=== PATIENT | male | born 2000 | race Asian ===

== ENCOUNTER 2025-02-28 10:32 | Inpatient (IN) | payer OTHER ==
[~2025-02-28] VITALS: Ht 167.6 cm; Wt 69.2 kg
[2025-02-28 11:34] LABS: PLATELET COUNT, AUTOMATED 300 10^3/uL (150-450)
[2025-02-28 12:07] LABS: ETHYL ALCOHOL (ETHANOL) < 0.003 % (0.000-0.010)
[2025-02-28 12:09] LABS: ALT/SGPT 21 U/L (7.0-40); AST/SGOT 21 U/L (<34); CALCIUM LEVEL 9.9 MG/DL (8.5-10.1); CARBON DIOXIDE LEVEL 26 MMOL/L (20-31); CHLORIDE LEVEL 104 MMOL/L (98-107); CREATININE FOR GFR 1.01 MG/DL (0.70-1.30); GLOMERULAR FILTRATION RATE > 90.0 (>60); POTASSIUM SERUM 4.3 MMOL/L (3.5-5.1); SALICYLATE LEVEL < 3.0 MG/DL (<30); SODIUM LEVEL 143 MMOL/L (136-145)
[2025-02-28 12:17] LABS: AMPHETAMINES LEVEL URINE NEGATIVE (NEGATIVE); BARBITURATES URINE NEGATIVE (NEGATIVE); BENZODIAZEPINES URINE NEGATIVE (NEGATIVE); COCAINE METABOLITE URINE NEGATIVE (NEGATIVE); METHADONE URINE NEGATIVE (NEGATIVE); OPIATES URINE NEGATIVE (NEGATIVE); PHENCYCLIDINE URINE NEGATIVE (NEGATIVE)
[2025-02-28 12:19] LABS: CANNABINOIDS URINE POSITIVE (NEGATIVE)
[2025-02-28] MEDS ORDERED: MAALOX 30 ML SUSP *UDC PO PRN (13:20)
[2025-02-28] MEDS ORDERED: MOM 30 ML SUSPENSION UDC PO PRN (13:20)
[2025-02-28] MEDS ORDERED: IBUPROFEN 400 MG TAB PO PRN (13:20)
[2025-02-28] MEDS ORDERED: ACETAMINOPHEN 325 MG TAB PO PRN (13:20)
[2025-02-28] MEDS: OLANZapine 5 MG TAB PO ONE (14:01)
[2025-02-28 15:32] VITALS: BP 121/60; TEMP 97.4
[2025-03-01 06:28] VITALS: BP 113/67; TEMP 97.6; O2SAT 100
[2025-03-01] MEDS ORDERED: ROZE8TAB16 PO (09:38)
[2025-03-01] MEDS ORDERED: FERR325T19 PO (09:38)
[2025-03-01] MEDS ORDERED: MELA5CAP2 PO (09:38)
[2025-03-01] MEDS ORDERED: VITA1CAP25 PO (09:38)
[2025-03-01] MEDS ORDERED: HOME MED LIST COMPLETE! XX SCH (09:40)
[2025-03-01] MEDS: OLANZapine 5 MG TAB PO SCH ×2 (10:59→20:07)
[2025-03-01 15:05] VITALS: BP_SYST 128; BP_SYST 137; BP_DIAS 82; BP_DIAS 90; TEMP 97.6; O2SAT 100
[2025-03-01] MEDS: traZODone 50 MG TAB PO PRN (20:07)
[2025-03-01] MEDS: OLANZapine ORAL DISINTEGRATING TAB 5MG PO PRN (21:34)
[2025-03-02] MEDS: FERROUS SULFATE 325 MG TAB PO SCH (08:40)
[2025-03-02 15:09] VITALS: BP 123/80; TEMP 98; O2SAT 99
[2025-03-03 06:35] VITALS: BP 118/65; TEMP 98.5; O2SAT 98
[2025-03-03 16:27] VITALS: BP 139/84; TEMP 97.2; O2SAT 97
[2025-03-04 06:25] VITALS: BP 136/74; TEMP 96.4; O2SAT 99
[2025-03-04] MEDS ORDERED: OLAN1TAB16 PO ×2 (09:58)
[2025-03-04] MEDS ORDERED: TRAZ-252 PO (09:58)
[2025-03-04] MEDS ORDERED: OLAN1TAB20 PO (14:48)
== END 2025-03-04 12:22 | disposition home or self-care (01) | DRG 885 ==
LOC: M ED 10:32 → M ED INP 13:16 → M PSY 15:30
PROVIDERS: ADMIT General Practice; ATTEND Psychiatry & Neurology Psychiatry
DX: F23 Brief psychotic disorder (principal); F12.159 Cannabis abuse with psychotic disorder, unspecified; Z79.899 Other long term (current) drug therapy; D50.9 Iron deficiency anemia, unspecified

== ENCOUNTER 2025-04-01 16:53 | Inpatient (IN) | payer OTHER ==
[~2025-04-01] VITALS: Ht 157.5 cm; Wt 69.0 kg
[~2025-04-01 16:53] MED LIST: FERR325T19 PO; MELA5CAP2 PO; OLAN1TAB16 PO; OLAN1TAB20 PO; ROZE8TAB16 PO; TRAZ-252 PO; VITA1CAP25 PO
[2025-04-01 17:51] LABS: PLATELET COUNT, AUTOMATED 341 10^3/uL (150-450)
[2025-04-01 18:01] LABS: AMPHETAMINES LEVEL URINE NEGATIVE (NEGATIVE); BARBITURATES URINE NEGATIVE (NEGATIVE); COCAINE METABOLITE URINE NEGATIVE (NEGATIVE); METHADONE URINE NEGATIVE (NEGATIVE); OPIATES URINE NEGATIVE (NEGATIVE); PHENCYCLIDINE URINE NEGATIVE (NEGATIVE)
[2025-04-01 18:02] LABS: BENZODIAZEPINES URINE NEGATIVE (NEGATIVE)
[2025-04-01 18:10] LABS: CANNABINOIDS URINE POSITIVE (NEGATIVE)
[2025-04-01 18:16] LABS: SALICYLATE LEVEL < 3.0 MG/DL (<30)
[2025-04-01 18:17] LABS: ALT/SGPT 20 U/L (7.0-40); AST/SGOT 17 U/L (<34); CALCIUM LEVEL 9.7 MG/DL (8.5-10.1); CARBON DIOXIDE LEVEL 27 MMOL/L (20-31); CHLORIDE LEVEL 102 MMOL/L (98-107); CREATININE FOR GFR 0.93 MG/DL (0.70-1.30); GLOMERULAR FILTRATION RATE > 90.0 (>60); POTASSIUM SERUM 4.5 MMOL/L (3.5-5.1); SODIUM LEVEL 140 MMOL/L (136-145)
[2025-04-01 18:28] LABS: ETHYL ALCOHOL (ETHANOL) < 0.003 % (0.000-0.010)
[2025-04-01] MEDS ORDERED: TRAZ1TAB10 PO (20:17)
[2025-04-01] MEDS ORDERED: FERR1TAB8 PO (20:17)
[2025-04-01] MEDS ORDERED: OLAN1TAB20 PO (20:17)
[2025-04-01] MEDS ORDERED: GABA-1172 PO (20:17)
[2025-04-01] MEDS ORDERED: ERGO500029 PO (20:17)
[2025-04-01] MEDS ORDERED: HOME MED LIST COMPLETE! XX SCH (20:20)
[2025-04-01] MEDS ORDERED: MOM 30 ML SUSPENSION UDC PO PRN (20:30)
[2025-04-01] MEDS ORDERED: ACETAMINOPHEN 325 MG TAB PO PRN (20:30)
[2025-04-01] MEDS ORDERED: OLANZapine 5 MG TAB PO PRN (20:30)
[2025-04-01] MEDS ORDERED: MAALOX 30 ML SUSP *UDC PO PRN (20:30)
[2025-04-01] MEDS: OLANZapine 10 MG TAB PO SCH (21:00)
[2025-04-01 22:02] VITALS: BP 135/89; TEMP 97.8; O2SAT 99
[2025-04-01] MEDS: IBUPROFEN 400 MG TAB PO PRN (22:43)
[2025-04-01] MEDS: traZODone 50 MG TAB PO PRN (22:43)
[2025-04-02 06:45] VITALS: BP 126/72; TEMP 97.5; O2SAT 99
[2025-04-02] MEDS: GABAPENTIN 300 MG CAP PO SCH (09:35)
[2025-04-02 15:06] VITALS: BP 129/90; TEMP 97.9; O2SAT 99
[2025-04-03 06:43] VITALS: BP 116/59; TEMP 97.8; O2SAT 100
[2025-04-03] MEDS: FERROUS SULFATE 325 MG TAB PO SCH (09:03)
[2025-04-03 16:23] VITALS: BP 127/81; TEMP 97; O2SAT 99
[2025-04-04 06:23] VITALS: BP 128/68; TEMP 97.8; O2SAT 97
[2025-04-04 15:21] VITALS: BP 135/60; TEMP 98.3; O2SAT 99
[2025-04-04] MEDS: GABAPENTIN 300 MG CAP PO SCH (20:15)
[2025-04-05 06:59] VITALS: BP 144/90; TEMP 98.2; O2SAT 99
[2025-04-05 15:30] VITALS: BP 124/76; TEMP 98; O2SAT 98
[2025-04-06 06:33] VITALS: BP 136/67; TEMP 97.2; O2SAT 99
[2025-04-06 15:19] VITALS: BP 140/83; TEMP 98.4; O2SAT 100
[2025-04-06] MEDS ORDERED: TRAZ-252 PO (15:34)
[2025-04-06] MEDS ORDERED: ABIL10TA9 PO (15:34)
[2025-04-06] MEDS ORDERED: HYDR-3363 PO (15:34)
[2025-04-07 06:52] VITALS: BP 118/66; TEMP 98.7; O2SAT 97
[2025-04-08] MEDS ORDERED: VITAMIN D 50,000 UNITS CAPSULE (ERGOCALCIFEROL 1.25MG) PO SCH (09:00)
== END 2025-04-07 10:57 | disposition home or self-care (01) | DRG 898 ==
LOC: M ED 16:53 → M ED INP 20:28 → M PSY 21:38
PROVIDERS: ADMIT Psychiatry & Neurology Neurology; ATTEND General Practice
DX: F12.159 Cannabis abuse with psychotic disorder, unspecified (principal); F41.9 Anxiety disorder, unspecified; Z79.899 Other long term (current) drug therapy; D50.9 Iron deficiency anemia, unspecified; F17.200 Nicotine dependence, unspecified, uncomplicated

== ENCOUNTER 2025-04-19 15:14 | Inpatient (IN) | payer OTHER ==
[~2025-04-19] VITALS: Ht 167.6 cm; Wt 72.0 kg
[~2025-04-19 15:14] MED LIST changes: +ABIL10TA9 PO; +ERGO500029 PO; +FERR1TAB8 PO; +GABA-1172 PO; +HYDR-3363 PO; +TRAZ1TAB10 PO
[2025-04-19 17:27] LABS: PLATELET COUNT, AUTOMATED 310 10^3/uL (150-450)
[2025-04-19 17:41] LABS: AMPHETAMINES LEVEL URINE NEGATIVE (NEGATIVE)
[2025-04-19 17:42] LABS: BARBITURATES URINE NEGATIVE (NEGATIVE); BENZODIAZEPINES URINE NEGATIVE (NEGATIVE); COCAINE METABOLITE URINE NEGATIVE (NEGATIVE); METHADONE URINE NEGATIVE (NEGATIVE); OPIATES URINE NEGATIVE (NEGATIVE); PHENCYCLIDINE URINE NEGATIVE (NEGATIVE)
[2025-04-19] MEDS ORDERED: HYDR-3363 PO (17:47)
[2025-04-19] MEDS ORDERED: ERGO125013 PO (17:47)
[2025-04-19] MEDS ORDERED: ARIP10TA63 PO (17:47)
[2025-04-19] MEDS ORDERED: TRAZ-252 PO (17:47)
[2025-04-19] MEDS ORDERED: FERR325T3 PO (17:47)
[2025-04-19] MEDS ORDERED: GABA-1172 PO (17:47)
[2025-04-19 17:48] LABS: CANNABINOIDS URINE POSITIVE (NEGATIVE)
[2025-04-19] MEDS ORDERED: HOME MED LIST COMPLETE! XX SCH (17:50)
[2025-04-19 17:58] LABS: ALT/SGPT 29 U/L (7.0-40); AST/SGOT 20 U/L (<34); CALCIUM LEVEL 10.2 MG/DL (8.5-10.1); CARBON DIOXIDE LEVEL 30 MMOL/L (20-31); CHLORIDE LEVEL 98 MMOL/L (98-107); CREATININE FOR GFR 0.98 MG/DL (0.70-1.30); GLOMERULAR FILTRATION RATE > 90.0 (>60); POTASSIUM SERUM 3.7 MMOL/L (3.5-5.1); SALICYLATE LEVEL < 3.0 MG/DL (<30); SODIUM LEVEL 137 MMOL/L (136-145)
[2025-04-19 18:00] LABS: ETHYL ALCOHOL (ETHANOL) 0.003 % (0.000-0.010)
[2025-04-19] MEDS ORDERED: IBUPROFEN 400 MG TAB PO PRN (21:05)
[2025-04-19] MEDS ORDERED: MAALOX 30 ML SUSP *UDC PO PRN (21:05)
[2025-04-19] MEDS ORDERED: MOM 30 ML SUSPENSION UDC PO PRN (21:05)
[2025-04-20 01:22] VITALS: BP 125/84; TEMP 98; O2SAT 99
[2025-04-20] MEDS: traZODone 50 MG TAB PO PRN (02:27)
[2025-04-20 06:44] VITALS: BP 136/89; TEMP 98.1; O2SAT 98
[2025-04-20] MEDS: HALOPERIDOL 5 MG TAB PO PRN (07:42)
[2025-04-20 15:18] VITALS: BP 130/79; TEMP 98; O2SAT 98
[2025-04-20] MEDS: ACETAMINOPHEN 325 MG TAB PO PRN (16:39)
[2025-04-20] MEDS: GABAPENTIN 300 MG CAP PO SCH (21:00)
[2025-04-21] MEDS: LORazepam 1 MG TAB PO PRN (02:29)
[2025-04-21] MEDS ORDERED: ONDANSETRON 4MG TAB PO PRN (13:45)
[2025-04-21 15:36] VITALS: BP 135/81; TEMP 97.2; O2SAT 99
[2025-04-22 06:24] VITALS: BP 125/61; TEMP 98.2; O2SAT 95
[2025-04-22 18:48] VITALS: BP 132/70; TEMP 97.4; O2SAT 99
[2025-04-23 06:46] VITALS: BP 116/61; TEMP 97.8; O2SAT 98
[2025-04-23] MEDS ORDERED: TRAZ-252 PO (08:40)
[2025-04-23] MEDS ORDERED: HYDR-3363 PO (08:40)
[2025-04-23] MEDS ORDERED: ARIP10TA63 PO (08:41)
[2025-04-23] MEDS ORDERED: GABA-1172 PO (08:41)
== END 2025-04-23 10:45 | disposition home or self-care (01) | DRG 885 ==
LOC: M ED 15:14 → EDBD 15:14 → M ED INP 21:05 → M PSY 04-20 00:50
PROVIDERS: ADMIT Student in an Organized Health Care Education/Training Program; ATTEND General Practice
DX: F29 Unspecified psychosis not due to a substance or known physiological condition (principal); F12.151 Cannabis abuse with psychotic disorder with hallucinations; F41.9 Anxiety disorder, unspecified; D50.9 Iron deficiency anemia, unspecified; F17.290 Nicotine dependence, other tobacco product, uncomplicated; Z79.899 Other long term (current) drug therapy; Z91.148 Patient's other noncompliance with medication regimen for other reason